=== PATIENT | female | born 1950 | race Caucasian/White ===

== ENCOUNTER → 2023-12-14 16:19 | Outpatient (REF) | payer MEDICARE, OTHER, SELFPAY | LOC: HWWDC 16:19 | PROVIDERS: ATTENDING PHYSICIAN Internal Medicine | DX: Z12.31 Encounter for screening mammogram for malignant neoplasm of breast (principal) | CPT/HCPCS: 77063; 77067 ==

== ENCOUNTER → 2024-12-20 10:24 | Outpatient (REF) | payer MEDICARE, OTHER, SELFPAY | LOC: HWRAD 10:24 | PROVIDERS: ATTENDING PHYSICIAN Internal Medicine | DX: M81.0 Age-related osteoporosis without current pathological fracture (principal); Z12.31 Encounter for screening mammogram for malignant neoplasm of breast | CPT/HCPCS: 77063; 77067; 77080 ==

== ENCOUNTER 2025-01-03 09:37 | Emergency (ER) | payer MEDICARE, OTHER, SELFPAY ==
[2025-01-03 09:49] VITALS: BP 140/71
[2025-01-03 10:18] LABS: % Basophils 0.4 % (0-2); % Eosinophils 1.5 % (0-6); % Immature Granulocytes 0.6 % (0-0.5); % Lymphocytes 17.2 % (20.5-51.1); % Monocytes 12.5 % (1.7-9.3); % Neutrophils 67.8 % (42.2-75.2); Absolute Eosinophils 0.1 10^3/uL (0-0.7); Absolute Lymphocytes 0.8 10^3/uL (1.2-3.4); Absolute Monocytes 0.6 10^3/uL (0.1-0.6); Absolute Neutrophils 3.2 10^3/uL (1.4-6.5); Hematocrit 37.5 % (37.0-47.0); Mean Corp Hgb Conc. 34.7 g/dL (33.0-37.0); Mean Corpuscular Volume 95.2 fL (81.0-99.0); Nucleated Red Blood Cells % 0 %; Platelet Count 247 10^3/uL (130-400); Red Blood Cell Count 3.94 10^6/uL (4.20-5.40); Red Cell Dist. Width 12.6 % (11.5-14.5); White Blood Cell Count 4.7 10^3/uL (4.8-10.8)
[2025-01-03 10:32] LABS: ALT (SGPT) 21 U/L (0-35); AST (SGOT) 27 U/L (14-36); Albumin 3.6 g/dl (3.5-5.0); Alkaline Phosphatase 67 U/L (38-126); Blood Urea Nitrogen 13 mg/dl (7-17); Calcium 8.9 mg/dl (8.4-10.2); Carbon Dioxide 28 mmol/L (22-30); Chloride 98 mmol/L (98-107); Glucose 98 mg/dl (70-99); Potassium 4.1 mmol/L (3.5-5.1); Sodium 132 mmol/L (135-145); Total Bilirubin 0.4 mg/dl (0.2-1.3); Total Protein 6.7 g/dl (6.3-8.2); eGFR > 60.00
[2025-01-03 10:41] LABS: NT-proBNP 50.3 pg/ml; Troponin I < 0.012 ng/ml
[2025-01-03] MEDS: DUONEB 3 ML INH (11:39)
[2025-01-03] MEDS: DELTASONE 50 MG PO (11:39)
[2025-01-03 12:28] LABS: COVID-19 Antigen Negative (Negative)
--- NOTE | 2025-01-03 13:07 | ED.GENMED ---
History of Present Illness
General
Chief Complaint: Breathing Problem
Time Seen by Provider: 01/03/25 10:47
History of Present Illness
History of Present Illness:
74-year-old female complaining of some cough congestion chest pain with coughing. Symptoms started 9 days ago. Low-grade fever at that time. Exposed to family that are ill
Past History
Past History
ED Past Medical History: Asthma, COPD, HTN and Hypothyroidism
ED Past Surgical History: Gynecological
Social History
Tobacco: Former smoker
Alcohol: None
Drug: None
Personal:
Living: with family
Employment: Not employed
Family History
Family History: CAD (Coronary artery disease in all male members of her family)
Review of Systems
Review of Systems
All Other Systems: Not applicable
Respiratory: Denies hemoptysis
Cardiac: Denies syncope
Phy Exam
Physical Exam
Physical Exam:
GENERAL: Alert and oriented in no apparent distress
EYE: Orbits normal.
NECK: Supple, no significant adenopathy.
ENT: Pharynx without erythema
CARDIAC: Regular rate and rhythm without any obvious murmurs.
LUNGS: No respiratory distress but mild expiratory rhonchi and wheezing diffusely
ABDOMEN: Soft, without focal tenderness or distention
NEUROLOGICAL: Alert and oriented , grossly non-focal
SKIN: Warm and dry, no rash or lesion, no discoloration, skin intact.
MUSCULOSKELETAL: No edema,no deformity.Good color
PSYCH: Normal and appropriate interaction.
Scores
Heart Failure Risk
Heart Failure Risk Score: Not Applicable
Course
Orders/Labs/Results
Orders:
Orders
01/03/25 09:38
EKG [Electrocardiogram (*1)] Urgent
Reason for Study: Chest Pain
01/03/25 09:39
EKG- Treatment ONCE
01/03/25 09:53
CXR2 [CR Chest - 2 Views ] Urgent
Comment:
Reason For Exam: sob
01/03/25 10:06
Complete Blood Count/With Diff Urgent
Comprehensive Metabolic Panel Urgent
NT-proBNP Urgent
Troponin I Urgent
01/03/25 11:26
Ipratropium/Albuterol Sulfate [Duoneb] 3 ml INH R NOW STA
Prednisone [Deltasone] 50 mg PO NOW STA
01/03/25 11:48
COVID-19 Antigen Urgent
Source: Nasal Swab
Influenza A+B Rapid Molecular Urgent
[facility] Source: Nasal Swab
Specimen Description:
RSV [Respiratory Syncytial Virus] Urgent
[facility] Source: Nasal Swab
Specimen Description:
Date Specimen was Collected: 01/03/25
Time Specimen was Collected: 11:31
Abnormal Lab Results
01/03/25
10:06
WBC 4.7 L 10^3/uL
(4.8-10.8)
RBC 3.94 L 10^6/uL
(4.20-5.40)
MCH 33.0 H pg
(27.0-31.0)
Absolute Lymphs (auto) 0.8 L 10^3/uL
(1.2-3.4)
Immature Gran % 0.6 H %
(0-0.5)
Lymphocytes % 17.2 L %
(20.5-51.1)
Monocytes % 12.5 H %
(1.7-9.3)
Sodium 132 L mmol/L
(135-145)
01/03/25 10:06
01/03/25 10:06
Vital Signs
Initial and Last Documented VS:
Initial Vital Signs
Temp Pulse Resp BP Pulse Ox
98.0 F 76 16 140/71 98
01/03/25 09:49 01/03/25 09:49 01/03/25 09:49 01/03/25 09:49 01/03/25 09:49
Last Documented Vital Signs
Temp Pulse Resp BP Pulse Ox
98.0 F 76 16 140/71 98
01/03/25 09:49 01/03/25 09:49 01/03/25 09:49 01/03/25 09:49 01/03/25 09:49
MDM/Problems Addressed
Differential Diagnosis Includes:
Symptoms consistent with bronchitis/COPD exacerbation. Highly doubt pulmonary emboli. Expiratory rhonchi and wheezing improved after nebulizer. Clinically stable and nontoxic. Likely viral however his started doxycycline which is reasonable.
*Radiology
Radiology exam reviewed: preliminary read by ED provider (Negative)
*Pulse Oximetry
Patient hypoxic: no
*Critical Care Note
Total Time (30-74mins, 75-104mins- exclusive of procedures): Not Applicable
Data Reviewed
Review of Other/Old Records Reveals: Labs, Records and Testing
Update Note
Update Note:
Patient doing well and feeling better. Mild expiratory rhonchi. No respiratory distress. Will continue Doxy at this time. However likely viral. Add prednisone and follow-up
ED Attending Note
-
Portions of this chart may have been created with voice recognition software.� Occasional wrong word or��sound alike� substitutions may have occurred due to the inherent limitations of voice recognition software.
Discharge Plan
Departure
Patient Disposition: Home (Routine Discharge)
Date of Disposition: 01/03/25
Time of Disposition: 13:09
Patient with high blood pressure during this ER visit?: Yes
Discharge Problem:
Acute COPD exacerbation/bronchitis
Instructions: Shortness of Breath (Dyspnea) (DC), BLOOD PRESSURE
Prescriptions:
New
prednisone 10 mg tablet
10 mg PO DAILY Qty: 20 0RF
Rx Instructions:
4 tablets day 1. Then 1 less tablet every other day until gone
No Action
levothyroxine 50 MCG tablet
50 mcg PO DAILY
biotin [Appearex] 2,500 MCG tablet
2,500 mcg PO DAILY
folic acid 0.4 MG tablet
0.4 mg PO DAILY
aspirin [Aspir-Low] 81 MG tablet,delayed release (DR/EC)
81 mg PO DAILY
valsartan-hydrochlorothiazide [Diovan HCT] 1 EACH tablet
1 ea PO HS
estradiol [Estrace] 1 MG tablet
1 mg PO HS
kacqbfxa-aapr-rorooh-hyalur ac 1 EACH capsule
1 cap PO DAILY
jnyzgoja-iyh-yvte-FA-vit K-lut [Centrum Silver Women] 1 EACH tablet
1 ea PO DAILY
marpdzhjxny-nnudcnozz-nunnudwx [Trelegy Ellipta] 1 EACH blister with device
1 ea IH DAILY
Referrals:
Silvia Loco MD [Family Provider] - Follow up in 2-3 days
Activity Restrictions/Additional Instructions:
Start the oral prednisone tomorrow. The prescription was sent to your pharmacy
Continue the doxycycline and your other inhalers
Follow-up closely with your primary physician
Return with any progression of symptoms or concerning symptoms
Interventions
Interventions:
*Risk Screen - Suicide Last Done: 01/03/25 09:49
*General Assessment Last Done: 01/03/25 11:04
*Neglect/Abuse Screening Last Done: 01/03/25 09:49
ED- Cardiac Assessment Last Done: 01/03/25 11:04
ED- Pulmonary Assessment Last Done: 01/03/25 11:04
Discharge Date and Time
Print Language: ITALIAN
[2025-01-03 13:15] VITALS: BP 140/72
== END 2025-01-03 14:07 | disposition home or self-care (01) ==
LOC: EMR 09:37
PROVIDERS: EMERGENCY PHYSICIAN Emergency Medicine; FAMILY PHYSICIAN Internal Medicine
DX: J44.1 Chronic obstructive pulmonary disease with (acute) exacerbation (principal); J40 Bronchitis, not specified as acute or chronic; I10 Essential (primary) hypertension; E03.9 Hypothyroidism, unspecified; Z82.49 Family history of ischemic heart disease and other diseases of the circulatory system; Z87.891 Personal history of nicotine dependence
CPT/HCPCS: 99283; 94640; 71046; 80053; 83880; 84484; 85025; 87502; 87807; 87811; 93005

== ENCOUNTER → 2025-01-06 10:24 | Outpatient (REF) | payer MEDICARE, OTHER, SELFPAY | LOC: WDC 10:24 | PROVIDERS: ATTENDING PHYSICIAN Internal Medicine | DX: R92.8 Other abnormal and inconclusive findings on diagnostic imaging of breast (principal) | CPT/HCPCS: 77065 ==

== ENCOUNTER → 2025-01-13 07:37 | Outpatient (REF) | payer MEDICARE, OTHER, SELFPAY ==
--- NOTE | 2025-01-13 09:31 | OID.BR.INTR ---
[facility] Breast Navigator - Initial
- -
Date of Contact: 01/13/25
Met with patient. Patient given written information on navigator services available at [facility]. Will follow up as needed per protocol.
== END ==
LOC: WDC 07:37
PROVIDERS: ATTENDING PHYSICIAN Internal Medicine
DX: R92.1 Mammographic calcification found on diagnostic imaging of breast (principal)
CPT/HCPCS: 88305; 19081; 76098; 88341; 88342; 88360; A4648